=== PATIENT | male | born 1995 | race Caucasian/White ===

== ENCOUNTER 2018-02-05 16:32 | Emergency (ER) | payer OTHER ==
[~2018-02-05] VITALS: Ht 193 cm; Wt 105.4 kg
[2018-02-05 16:35] VITALS: TEMP 37; Ht 193 cm; Wt 105.4 kg
[2018-02-05] MEDS ORDERED: IBUP-103 PO (16:40)
[2018-02-05] MEDS ORDERED: CHLO1TAB50 PO (16:40)
--- NOTE | 2018-02-05 16:52 | EMERGENCY ROOM VISIT NOTE ---
ED Visit Note First contact with patient: 16:38 CHIEF COMPLAINT: Bilateral ear pain, cough, nasal congestion HISTORY OF PRESENT ILLNESS: This 22-year-old male patient presents to the emergency department ambulatory, with his mother, complaining of URI symptoms including cough and runny nose x 2 weeks. The patient states they have been experiencing congestion, runny nose, sore throat, cough, and fatigue. He states he was recently in [place] for spring, and after flying home yesterday, he began experiencing pressure in both ears. He feels that the ears need to pop, however has been unsuccessful. They deny any other symptoms including swollen lymph nodes, fever, nausea, or vomiting. The patient describes the drainage from the nose as clear and runny. There no sinus pressure or pain. The patient has taken ibuprofen intermittently for the symptoms. The patient does not recall any known exposure to strep throat. The patient does not have a history of sinus infections. Denies a rash. REVIEW OF SYSTEMS: A 10 system review of systems was performed with positives and pertinent negatives listed in the history of present illness. All other systems were reviewed and are negative. ALLERGIES: None MEDICATIONS: None PMH: None SOCIAL HISTORY: The patient is a [employer] student. He lives locally with his roommate. He denies drug, alcohol, tobacco use. PHYSICAL EXAM: VITALS: Vitals are noted on the nurse's note and reviewed by myself. Vital signs stable. GENERAL: This is a 22-year-old white male, in no acute distress, nondiaphoretic , well-developed well-nourished. SKIN: The skin was without rashes, erythema, edema, or bruising. There is no tenting of the skin. Capillary reflex less than 2 seconds. HEAD: Normocephalic atraumatic. EARS: External auditory canals clear, bilateral tympanic membranes pearly cotto without erythema or effusion bilaterally. EYES: Pupils equal round and reactive to light and accommodation. Conjunctivae without injection, sclerae without icterus. Extraocular movements intact. NOSE: Patent, turbinates with mild inflammation, but no erythema. Turbinates are pale and edematous. Clear rhinorrhea noted. No sinus tenderness. MOUTH: Mucous membranes moist. Tonsils are not enlarged. Pharynx without erythema or exudate. No posterior pharyngeal drainage. Uvula midline. Airway patent. Tongue does not deviate. NECK: Supple without nuchal rigidity. No lymphadenopathy. No thyromegaly. Cervical spine is nontender. No JVD. HEART: Regular rate and rhythm without murmurs gallops or rubs. LUNGS: Clear to auscultation bilaterally without wheezes, rales or rhonchi. No dullness to percussion. No retractions or accessory muscle use. MUSCULOSKELETAL: No muscle atrophy, erythema, or edema noted. Full range of motion without joint tenderness in all extremities. No tenderness to palpation. Normal gait. Strength 5/5 throughout. NEURO: Patient was alert and oriented to person place and time. Normal sensation to light and sharp touch. No focal neurological deficits. EMERGENCY DEPARTMENT COURSE: The patient was seen and evaluated as above. His symptoms are consistent with allergic rhinitis with eustachian tube dysfunction related to flying. I encouraged the patient to use an OTC antihistamine and he may consider nasal decongestant or steroid spray such as Flonase to help with congestion. The patient was encouraged to follow-up with [facility] if no improvement in 1 week. All questions were answered to the patient and his mother satisfaction. Discharge instructions reviewed, and the patient was discharged home in good condition. I attest that I have personally reviewed the patient's current medication list. Patient was found to have normal blood pressure on screening and does not require follow-up. DIFFERENTIAL DIAGNOSIS: Eustachian tube dysfunction, upper respiratory infection , acute sinusitis, otitis media, otitis externa, acute pharyngitis, allergic rhinitis, influenza, pneumonia, malignancy, viral etiology, and others DIAGNOSIS: Allergic rhinitis, eustachian tube dysfunction Current/Historical Medications Scheduled PRN Chlorpheniramine-Phenylephrine (Jewels-Vanderbilt Plus Cold), 1 DOSE PO DIRECTED PRN for COLD SYMPTOMS Ibuprofen Tab (Advil), 200-600 MG PO Q4H PRN for Pain or Fever Allergies Coded Allergies: No Known Allergies (Unverified , 02/05/18) Vital Signs Date Time Temp Pulse Resp B/P (MAP) Pulse Ox O2 Delivery O2 Flow Rate FiO2 02/05/18 16:35 37.0 108 18 160/94 96 Room Air Departure Information Impression Primary Impression: Allergic rhinitis Dispostion Home / Self-Care Condition GOOD Referrals No Doctor, Assigned (PCP) [facility] Patient Instructions ED Rhinitis Allergic , My [facility] Additional Instructions You were seen and evaluated in the emergency department today for nasal congestion, runny nose, pressure in the ears, and intermittent coughing. As discussed, your examination is consistent with allergic rhinitis. Drink warm tea with honey and lemon, as this will also help to soothe the throat. Gargle with salt water frequently. Ibuprofen(Motrin, Advil) may be used for fever or pain. Use 600mg every six hours as needed. Take with food. Avoid using more than 2400mg in a 24 hour period. Do not use 2400mg per day for more than three consecutive days without physician direction. Prolonged inappropriate use can lead to stomach upset or ulcers. You may take Naproxen 1-[address] tablets twice daily in place of ibuprofen. This medication will help with the swelling in your sinuses. (AND/OR) Acetaminophen(Tylenol) may be used for fever or pain. Use 1000mg every six hours as needed. Avoid using more than 3000mg in a 24 hour period. For congestion, you may use Flonase OTC. You should take Zyrtec (cetirizine) 10 mg daily at bedtime. As discussed, this will help with the pressure in the ears as well as the allergy symptoms. Please get plenty of rest and drink plenty of fluids. Please return or follow-up with your PCP in 1 week if you are not experiencing any improvement in your symptoms. Return to the emergency department for coughing up blood, difficulty breathing, chest pain, worsening symptoms, or for other concerns. Problem Qualifiers Primary Impression: Allergic rhinitis Allergic rhinitis trigger: unspecified Allergic rhinitis seasonality: unspecified seasonality Qualified Codes: J30.9 - Allergic rhinitis, unspecified
[2018-02-05 17:24] VITALS: BP 122/64; PULSE 64; O2SAT 99
== END 2018-02-05 17:15 | disposition home or self-care (01) ==
LOC: C.EDB 16:33 → C.EDD 17:15
DX: J30.9 Allergic rhinitis, unspecified (principal)